=== PATIENT | female | born 1985 | race Caucasian/White ===

== ENCOUNTER 2017-11-15 16:06 | Emergency (ER) | payer OTHER ==
[~2017-11-15] VITALS: Ht 167.6 cm; Wt 104.3 kg
[2017-11-15 18:44] VITALS: BP 137/87
== END 2017-11-15 20:13 | disposition home or self-care (01) ==
LOC: ER 16:17
DX: S16.1XXA Strain of muscle, fascia and tendon at neck level, initial encounter (principal); X58.XXXA Exposure to other specified factors, initial encounter; Y93.89 Activity, other specified; Y99.8 Other external cause status; Y92.89 Other specified places as the place of occurrence of the external cause
CPT/HCPCS: 70450; 72125

== ENCOUNTER 2022-05-01 12:09 | Emergency (ER) | payer OTHER ==
[~2022-05-01] VITALS: Ht 167.6 cm; Wt 94.5 kg
[2022-05-01 15:02] VITALS: BP 142/69
[2022-05-01] MEDS ORDERED: HYDROcodone-ACET 10/325MG TAB PO ONE (15:15)
[2022-05-01] MEDS ORDERED: IBUPROFEN 800 MG TAB PO ONE (15:30)
[2022-05-01] MEDS ORDERED: IBUP600T27 PO (15:36)
== END 2022-05-01 16:01 | disposition home or self-care (01) ==
LOC: ER 12:09
DX: S93.401A Sprain of unspecified ligament of right ankle, initial encounter (principal); S83.92XA Sprain of unspecified site of left knee, initial encounter; W19.XXXA Unspecified fall, initial encounter; Y93.89 Activity, other specified; Y92.89 Other specified places as the place of occurrence of the external cause; Y99.8 Other external cause status
CPT/HCPCS: 73562; 73610

== ENCOUNTER → 2023-06-12 | Outpatient (CLI) | payer BC ==
[~2023-06-12] MED LIST: IBUP-1454 PO
== END | disposition home or self-care (01) ==
LOC: LAB 07:06
PROVIDERS: ATTEND Licensed Practical Nurse
DX: N39.0 Urinary tract infection, site not specified (principal)
CPT/HCPCS: 87086